=== PATIENT | female | born 2000 ===

== ENCOUNTER 2022-04-03 09:59 | Outpatient (CLI) | payer OTHER | END 2022-04-03 11:44 | disposition home or self-care (01) | LOC: PRENATAL 09:59 | PROVIDERS: ATTEND Obstetrics & Gynecology Maternal & Fetal Medicine | DX: O35.0XX0 Maternal care for (suspected) central nervous system malformation in fetus, not applicable or unspecified (principal); O35.3XX0 Maternal care for (suspected) damage to fetus from viral disease in mother, not applicable or unspecified; Z3A.28 28 weeks gestation of pregnancy ==

== ENCOUNTER 2022-06-01 03:38 | Outpatient (CLI) | payer OTHER ==
[~2022-06-01] VITALS: Ht 160 cm; Wt 61.7 kg
[2022-06-01] MEDS ORDERED: PRENATAL TABLE1 EAC3 PO (04:28)
[2022-06-01] MEDS ORDERED: VITAMIN D310 MCG/1 M PO (04:28)
== END 2022-06-02 16:33 | disposition home or self-care (01) ==
LOC: OBS/DEL 03:38
PROVIDERS: ATTEND Obstetrics & Gynecology
DX: O21.2 Late vomiting of pregnancy (principal); O99.013 Anemia complicating pregnancy, third trimester; Z3A.36 36 weeks gestation of pregnancy